=== PATIENT | male | born 1985 ===

== ENCOUNTER → 2024-01-02 08:17 | Outpatient (REF) | payer OTHER, SELFPAY | LOC: RCS 08:17 | PROVIDERS: ATTENDING PHYSICIAN Dentist Oral and Maxillofacial Surgery; FAMILY PHYSICIAN Physician Assistant Medical | DX: K01.1 Impacted teeth (principal) | CPT/HCPCS: 93005 ==

== ENCOUNTER → 2024-06-03 16:13 | Outpatient (REF) | payer OTHER, SELFPAY | LOC: RAD 16:13 | PROVIDERS: ATTENDING PHYSICIAN Physician Assistant Medical | DX: R05.3 Chronic cough (principal) | CPT/HCPCS: 71046 ==